=== PATIENT | male | born 1980 | race Caucasian/White ===

== ENCOUNTER 2024-02-04 15:33 | Emergency (ER) | payer OTHER, SELFPAY ==
[2024-02-04 15:37] VITALS: BP 155/95; PULSE 99; RESP 16; TEMP 36.8; O2SAT 100; BMI 24.4
--- NOTE | 2024-02-04 16:39 | ED.DENTAL1 ---
HPI - Dental/Oral General Chief complaint: Dental/Oral Stated complaint: poss tooth infection Time Seen by Provider: 02/04/24 15:48 Source: patient Mode of arrival: walk-in History of Present Illness HPI Narrative: Patient is a 43-year-old male who presents to the emergency department for increasing swelling over the maxilla of the left jaw. Patient states he has had a broken tooth for several months since he had COVID and states in the last day he has noticed swelling and pressure to the area. He has no severe tooth pain. No fevers or vomiting. No drainage from the area. No medications taken prior to arrival. He is a 1 pack/day cigarette smoker Related Data Home Medications ?Medication ?Instructions ?Recorded ?Confirmed levetiracetam 1,000 mg tablet 1,000 mg PO BID 02/04/24 02/04/24 (Keppra) Previous Rx's ?Medication ?Instructions ?Recorded amoxicillin 500 mg capsule 500 mg PO TID 10 days #30 caps 02/04/24 ketorolac 10 mg tablet 10 mg PO TID PRN pain #10 tabs 02/04/24 Allergies Allergy/AdvReac Type Severity Reaction Status Date / Time No Known Drug Allergies Allergy Verified 02/04/24 15:41 Review of Systems ROS Constitutional Denies: fever or chills Ears, nose, mouth, and throat Reports: mouth pain; Denies: throat pain or nasal congestion Cardiovascular Denies: chest pain Respiratory Denies: shortness of breath or cough Gastrointestinal Denies: nausea or vomiting Integumentary/Breast Denies: rash Neurological Denies: headache Exam Narrative Exam Narrative: Gen.: Awake, alert, in no distress Head: Normocephalic, atraumatic ENT: Moist mucous membranes; Tooth #15 with dental caries and root exposure. Mild swelling over the left maxilla with no erythema or fluctuance noted. No drainage from the teeth. Airway widely open and patent. No trismus or drooling. No redness or swelling under the tongue. Clear speech. Respiratory: No respiratory distress Extremities: Moves extremities equally Psych: Normal mood and affect Neuro: No focal neuro deficit Skin: Warm, dry, intact Constitutional Vital Signs, click to edit/add: Last Vital Signs Temp 98.3 F 02/04/24 15:37 Pulse 99 H 02/04/24 15:37 Resp 16 02/04/24 15:37 BP 155/95 H 02/04/24 15:37 Pulse Ox 100 02/04/24 15:37 O2 Del Method Room Air 02/04/24 15:37 Course Vital Signs Vital signs: Vital Signs Temperature 98.3 F 02/04/24 15:37 Pulse Rate 99 H 02/04/24 15:37 Respiratory Rate 16 02/04/24 15:37 Blood Pressure 155/95 H 02/04/24 15:37 Pulse Oximetry 100 02/04/24 15:37 Oxygen Delivery Method Room Air 02/04/24 15:37 Temperature 98.3 F 02/04/24 15:37 Pulse Rate 99 H 02/04/24 15:37 Respiratory Rate 16 02/04/24 15:37 Blood Pressure 155/95 H 02/04/24 15:37 Pulse Oximetry 100 02/04/24 15:37 Oxygen Delivery Method Room Air 02/04/24 15:37 MDM - Dental/Oral MDM Narrative Medical decision making narrative: Treated with amoxicillin, NSAIDs and topical analgesia. Follow-up with PCP and dentist and return to the ER if symptoms change or worsen Medical Records Attestation: I reviewed the patient's medical records. Discharge Plan Discharge Stand Alone Forms: Portal Instructions Chief Complaint: Dental/Oral Clinical Impression: Toothache, Dental infection Patient Disposition: Home, Self-Care Time of Disposition Decision: 16:37 Condition: Good Prescriptions / Home Meds: New amoxicillin 500 mg capsule 500 mg PO TID 10 Days Qty: 30 0RF ketorolac 10 mg tablet 10 mg PO TID PRN (Reason: pain) Qty: 10 0RF No Action levetiracetam [Keppra] 1,000 mg tablet 1,000 mg PO BID Print Language: Peruvian Instructions: Toothache (ED) Additional Instructions: Follow up with your dentis Referrals: Physician,Non-Staff, MD [Primary Care Provider] - 1 week Discharge Date/Time: 02/04/24 16:49
[2024-02-04] MEDS: BENZOCAINE 30 ML, lidocaine HCL 15 ML MM (16:46)
== END 2024-02-04 16:49 | disposition home or self-care (01) ==
PROVIDERS: Emergency Provider Emergency Medicine; Family Provider Family Medicine
DX: K08.89 Other specified disorders of teeth and supporting structures (principal); K04.7 Periapical abscess without sinus; Z86.16 Personal history of COVID-19; F17.210 Nicotine dependence, cigarettes, uncomplicated; Z79.899 Other long term (current) drug therapy
CPT/HCPCS: 99283